=== PATIENT | female | born 1945 | race American Indian/Alaskan Native ===

== ENCOUNTER 2018-07-28 14:12 | Observation (INO) | payer OTHER, BC ==
[2018-07-28 14:20] VITALS: BMI 24.0
--- NOTE | 2018-07-28 14:22 | PDOC ---
Rapid Medical Evaluation Chief Complaint: Chest Pain Time Seen by Provider: 07/28/18 14:16 Medical Evaluation: Allergies Allergy/AdvReac Type Severity Reaction Status Date / Time No Known Allergies Allergy Verified 10/08/12 03:49 07/28/18 14:18 I have performed a brief in-person evaluation of this patient. The patient presents with a chief complaint of: pleuritic CP x 1 month. dry cough, Pertinent physical exam findings: AO x 3, NAD, lungs CTA I have ordered the following: CBC, CMP, EKG The patient will proceed to the ED for further evaluation 07/28/18 14:20 Discharge Disposition - Diagnosis Chest pain - Referrals - Patient Instructions - Post Discharge Activity
[2018-07-28 16:46] LABS: BASO % 1.2 % (0-2.0); EOS % 0.9 % (0-4.5); HEMATOCRIT 39.8 % (32.4-45.2); HEMOGLOBIN 13.6 GM/dL (10.7-15.3); LYMPH % 16.5 % (8-40); MCH 30.1 pg (25.7-33.7); MCHC 34.2 g/dl (32.0-36.0); MEAN CELL VOLUME 88.2 fl (80-96); MEAN PLT VOLUME 8.5 fl (7.5-11.1); MONO % 9.6 % (3.8-10.2); NEUT % 71.8 % (42.8-82.8); PLATELET COUNT 255 K/MM3 (134-434); RBC 4.51 M/mm3 (3.60-5.2); RDW 13.8 % (11.6-15.6); WHITE BLOOD COUNT 8.6 K/mm3 (4.0-10.0)
[2018-07-28 17:31] LABS: INR 0.97 (0.83-1.09); PROTHROMBIN TIME (PATIENT) 11.5 SEC (9.7-13.0)
--- NOTE | 2018-07-28 17:53 | PDOC ---
Attending Attestation - Resident Resident Name: Dimitris Calzada - ED Attending Attestation I have performed the following: I have examined & evaluated the patient, The case was reviewed & discussed with the resident, I agree w/resident's findings & plan, Exceptions are as noted - HPI HPI: 07/28/18 17:52 The patient is a 73 year old female with a significant past medical history of hypertension who presents to the emergency department with chest pain. The patient reports that her chest pain is worsened with exertion and deep inspiration. The patient reports some associated shortness of breath with her chest pain. 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 She denies any history of blood clots, leg swelling, recent travel. Is not on hormone therapy. No recent surgery or immobilization. She denies any fever chills, nausea, vomiting, diarrhea, constipation or urinary symptoms. The patient reports that she has had a prior GI workup regarding similar complaint with negative findings. It is noted that the patient is currently on macrobid for a UTI diagnosis. The patient denies any other complaints. - Physicial Exam PE: 07/28/18 17:53 GENERAL: Awake, alert, and fully oriented, in no acute distress. HEAD: No signs of trauma EYES: PERRLA, EOMI, sclera anicteric, conjunctiva clear ENT: Auricles normal inspection, hearing grossly normal, nares patent, oropharynx clear without exudates. Moist mucosa NECK: Nontender, no stepoffs, Normal ROM, supple, no lymphadenopathy, JVD, or masses LUNGS: Breath sounds equal, clear to auscultation bilaterally. No wheezes, and no crackles HEART: Regular rate and rhythm, normal S1 and S2, no murmurs, rubs or gallops ABDOMEN: Soft, nontender, normoactive bowel sounds. No guarding, no rebound. No masses EXTREMITIES: Normal range of motion, no edema. No clubbing or cyanosis. No cords, erythema, or tenderness NEUROLOGICAL: Cranial nerves II through XII intact. 5/5 strength and sensation in all extremities, Normal speech, normal gait, normal cerebellar function SKIN: Warm, Dry, normal turgor, no rashes or lesions noted. - Medical Decision Making 07/28/18 17:53 73 F with pleuritic chest pain. Pt with no DVT risk factors but given pleuritic nature will r/o PE with Ddimer. Pt has no ischemic EKG findings, making ACS less likely. - Labs, trop, ddimer - CXR - CTA if indicated
[2018-07-28 18:00] LABS: ALBUMIN 3.9 g/dl (3.4-5.0); ALK PHOS 88 U/L (45-117); ANION GAP 11 MMOL/L (8-16); BILIRUBIN,TOTAL 0.5 mg/dL (0.2-1); BLOOD UREA NITROGEN 12 mg/dL (7-18); CALCIUM 9.4 mg/dL (8.5-10.1); CHLORIDE 99 mmol/L (98-107); CO2 26 mmol/L (21-32); CREATININE 0.8 mg/dL (0.55-1.3); GLUCOSE,RANDOM 94 mg/dL (74-106); POTASSIUM 3.1 mmol/L (3.5-5.1); SGOT/AST 32 U/L (15-37); SGPT/ALT 21 U/L (13-61); SODIUM 136 mmol/L (136-145); TOT PROT 8.5 g/dl (6.4-8.2)
[2018-07-28] MEDS ORDERED: POTASSIUM CHLORIDE TABS 20 MEQ TABLET.ER (FP) PO ONE (23:32)
--- NOTE | 2018-07-28 23:37 | HP ---
CHIEF COMPLAINT: Chest pain, SOB PCP: Dr. Melendez HISTORY OF PRESENT ILLNESS: The patient is a 73 yo f w/ PMH HTN, OA, recurrent UTIs who comes into the ED c/ o a 3 week hx of chest pain and SOB. The patient describes a dull, substernal chest pain which radiates up to her throat. This pain began 3 weeks ago and was preceded by a sensation of "burning in the throat and mouth." She states that this pain is exacerbated by deep breathing and going up stairs. The patient took tylenol at home which helped the pain slightly. Patient follows with Dr. Quick for cardiology, last saw him approx. 1 year ago. The patient states that she had a stress test 5 years ago which was negative. Patient denies ever being cathed. Patient denies abdominal pain, nausea, vomiting, diarrhea. 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 Allergies No Known Allergies Allergy (Verified 10/08/12 03:49) HOME MEDICATIONS: Home Medications Medication Instructions Recorded Amlodipine Besylate [Norvasc] 10 mg PO DAILY 10/08/12 Losartan/Hydrochlorothiazide 1 each PO DAILY 10/08/12 [Losartan-Hctz 100-25 mg Tab] Meloxicam [Mobic] 15 mg PO TID 10/08/12 Bethanechol Chloride 50 mg PO Q6H 07/28/18 Metoprolol Succinate [Toprol Xl] 100 mg PO DAILY 07/28/18 Nitrofurantoin Macrocrystal 100 mg PO DAILY 07/28/18 [Nitrofurantoin] REVIEW OF SYSTEMS CONSTITUTIONAL: Absent: fever, chills, diaphoresis, generalized weakness, malaise, loss of appetite, weight change HEENT: Absent: rhinorrhea, nasal congestion, throat pain, throat swelling, difficulty swallowing, mouth swelling, ear pain, eye pain, visual changes CARDIOVASCULAR: Absent: syncope, palpitations, irregular heart rate, lightheadedness, peripheral edema RESPIRATORY: Absent: cough, shortness of breath, dyspnea with exertion, orthopnea, wheezing, stridor, hemoptysis GASTROINTESTINAL: Absent: abdominal pain, abdominal distension, nausea, vomiting, diarrhea, constipation, melena, hematochezia GENITOURINARY: Absent: dysuria, frequency, urgency, hesitancy, hematuria, flank pain, genital pain MUSCULOSKELETAL: Absent: myalgia, arthralgia, joint swelling, back pain, neck pain SKIN: Absent: rash, itching, pallor HEMATOLOGIC/IMMUNOLOGIC: Absent: easy bleeding, easy bruising, lymphadenopathy, frequent infections ENDOCRINE: Absent: unexplained weight gain, unexplained weight loss, heat intolerance, cold intolerance NEUROLOGIC: Absent: headache, focal weakness or paresthesias, dizziness, unsteady gait, seizure, mental status changes, bladder or bowel incontinence PSYCHIATRIC: Absent: anxiety, depression, suicidal or homicidal ideation, hallucinations. PHYSICAL EXAMINATION Vital Signs - 24 hr 07/28/18 14:17 Temperature 98.3 F Pulse Rate 71 Respiratory 18 Rate Blood Pressure 142/64 O2 Sat by Pulse 97 Oximetry (%) GENERAL: Awake, alert, and fully oriented, in no acute distress. HEAD: Normal with no signs of trauma. EYES: Pupils equal, round and reactive to light, extraocular movements intact, sclera anicteric, conjunctiva clear. No lid lag. NECK: Normal range of motion, supple without lymphadenopathy, JVD, or masses. LUNGS: Breath sounds equal, clear to auscultation bilaterally. No wheezes, and no crackles. No accessory muscle use. HEART: Regular rate and rhythm, normal S1 and S2 without murmur, rub or gallop. ABDOMEN: Soft, mild tenderness to palpation in epigastrium, not distended, normoactive bowel sounds, no guarding, no rebound, no masses. No hepatomegaly or splenomegaly. LOWER EXTREMITIES: 2+ pulses, warm, well-perfused. No calf tenderness. No peripheral edema. NEUROLOGICAL: Cranial nerves II-X intact. Normal speech. PSYCHIATRIC: Cooperative. Good eye contact. Appropriate mood and affect. SKIN: Warm, dry, normal turgor, no rashes or lesions noted, normal capillary refill. Laboratory Results - last 24 hr 07/28/18 07/28/18 07/28/18 15:01 16:00 16:00 WBC 8.6 RBC 4.51 Hgb 13.6 Hct 39.8 MCV 88.2 MCH 30.1 MCHC 34.2 RDW 13.8 Plt Count 255 D MPV 8.5 Absolute Neuts (auto) 6.2 Neutrophils % 71.8 Lymphocytes % 16.5 Monocytes % 9.6 D Eosinophils % 0.9 Basophils % 1.2 Nucleated RBC % 0 PT with INR 11.50 INR 0.97 D-Dimer 836 H Sodium Potassium Chloride Carbon Dioxide Anion Gap BUN Creatinine Creat Clearance w eGFR Random Glucose Calcium Total Bilirubin AST ALT Alkaline Phosphatase Creatine Kinase Troponin I Total Protein Albumin 07/28/18 16:00 WBC RBC Hgb Hct MCV MCH MCHC RDW Plt Count MPV Absolute Neuts (auto) Neutrophils % Lymphocytes % Monocytes % Eosinophils % Basophils % Nucleated RBC % PT with INR INR D-Dimer Sodium 136 Potassium 3.1 L Chloride 99 Carbon Dioxide 26 Anion Gap 11 BUN 12 Creatinine 0.8 Creat Clearance w eGFR > 60 Random Glucose 94 Calcium 9.4 Total Bilirubin 0.5 AST 32 ALT 21 Alkaline Phosphatase 88 Creatine Kinase 95 Troponin I < 0.02 Total Protein 8.5 H Albumin 3.9 ASSESSMENT/PLAN: The patient is a 73 yo f w/ PMH HTN who comes in c/o a 3 week history of atypical chest pain reproducible on palpation #Chest pain and SOB likley 2/2 GERD, r/o ACS -pain reproducible, preceded by burning -EKG unchanged from previous -trop negative x1 -rpt trop, EKG stat -protonix 40mg PO -tele monitoring #hypokalemia -40meq KCL PO -stat mag add on -monitor and replete PRN #HTN-controlled -resume home amlodipine 10mg daily -resume home HCTZ/losartan daily #FEN -no fluid indicated -monitor lytes as above -sodium controlled diet #Prophy -SCDs -patient projected to be short stay OBS -early ambulation #dispo -admit tele obs Visit type - Emergency Visit Emergency Visit: Yes Care time: The patient presented to the Emergency Department on the above date and was hospitalized for further evaluation of their emergent condition. - New Patient This patient is new to me today: Yes Date on this admission: 07/29/18 - Critical Care Critical Care patient: No
--- NOTE | 2018-07-28 23:45 | PDOC ---
*Physical Exam - Vital Signs Last Vital Signs Temp Pulse Resp BP Pulse Ox 98.3 F 71 18 142/64 97 07/28/18 14:17 07/28/18 14:17 07/28/18 14:17 07/28/18 14:17 07/28/18 14:17 ED Treatment Course - LABORATORY CBC & Chemistry Diagram: 07/28/18 16:00 07/28/18 16:00 - ADDITIONAL ORDERS Additional order review: Laboratory Results 07/28/18 07/28/18 07/28/18 16:00 16:00 15:01 PT with INR 11.50 INR 0.97 D-Dimer 836 H Sodium 136 Potassium 3.1 L Chloride 99 Carbon Dioxide 26 Anion Gap 11 BUN 12 Creatinine 0.8 Creat Clearance w eGFR > 60 Random Glucose 94 Calcium 9.4 Total Bilirubin 0.5 AST 32 ALT 21 Alkaline Phosphatase 88 Creatine Kinase 95 Troponin I < 0.02 Total Protein 8.5 H Albumin 3.9 07/28/18 16:00 RBC 4.51 MCV 88.2 MCHC 34.2 RDW 13.8 MPV 8.5 Neutrophils % 71.8 Lymphocytes % 16.5 Monocytes % 9.6 D Eosinophils % 0.9 Basophils % 1.2 Medical Decision Making - Medical Decision Making 07/28/18 23:44 ct chest neg for PE pt admitted to inpatient team for workup of her cp we went on down time process approx 6pm - please see paper records for fulldocumentation from resident/nursing *DC/Admit/Observation/Transfer Diagnosis at time of Disposition: Chest pain Qualifiers: Chest pain type: unspecified Qualified Code(s): R07.9 - Chest pain, unspecified - Discharge Dispostion Condition at time of disposition: Stable Decision to Admit order: Yes - Referrals Referrals: Dax Melendez MD [Primary Care Provider] - - Patient Instructions - Post Discharge Activity
[2018-07-29] MEDS: PANTOPRAZOLE 40 MG TABLET (FP) PO SCH ×2 (00:05→09:54)
--- NOTE | 2018-07-29 01:59 | PDOC ---
*Physical Exam - Vital Signs Last Vital Signs Temp Pulse Resp BP Pulse Ox 98.3 F 71 18 142/64 97 07/28/18 14:17 07/28/18 14:17 07/28/18 14:17 07/28/18 14:17 07/28/18 14:17 ED Treatment Course - LABORATORY CBC & Chemistry Diagram: 07/28/18 16:00 07/28/18 16:00 - ADDITIONAL ORDERS Additional order review: Laboratory Results 07/28/18 07/28/18 07/28/18 16:00 16:00 15:01 PT with INR 11.50 INR 0.97 D-Dimer 836 H Sodium 136 Potassium 3.1 L Chloride 99 Carbon Dioxide 26 Anion Gap 11 BUN 12 Creatinine 0.8 Creat Clearance w eGFR > 60 Random Glucose 94 Calcium 9.4 Total Bilirubin 0.5 AST 32 ALT 21 Alkaline Phosphatase 88 Creatine Kinase 95 Troponin I < 0.02 Total Protein 8.5 H Albumin 3.9 07/28/18 16:00 RBC 4.51 MCV 88.2 MCHC 34.2 RDW 13.8 MPV 8.5 Neutrophils % 71.8 Lymphocytes % 16.5 Monocytes % 9.6 D Eosinophils % 0.9 Basophils % 1.2 Medical Decision Making - Medical Decision Making Late entry due to [employer] down time Per [employer], CTA negative for PE Discussed case with Dr. Rand who accepted patient for admission under Dr. Goode 07/29/18 01:59 *DC/Admit/Observation/Transfer Diagnosis at time of Disposition: Chest pain Qualifiers: Chest pain type: unspecified Qualified Code(s): R07.9 - Chest pain, unspecified - Discharge Dispostion Condition at time of disposition: Stable - Referrals Referrals: Dax Melendez MD [Primary Care Provider] - - Patient Instructions - Post Discharge Activity
[2018-07-29] MEDS ORDERED: POTASSIUM CHLORIDE TABS 20 MEQ TABLET.ER (FP) PO ONE (03:35)
[2018-07-29] MEDS ORDERED: PANTOPRAZOLE 40 MG TABLET (FP) ONE ×2 (03:36→09:39)
--- NOTE | 2018-07-29 05:16 | PN ---
Teaching Attending Note Name of Resident: Curtis Rand ATTENDING PHYSICIAN STATEMENT I saw and evaluated the patient. I reviewed the resident's note and discussed the case with the resident. I agree with the resident's findings and plan as documented. SUBJECTIVE: Seen and examined; please refer to resident note for further historical documentation. Patient is a 73 y/o female patient of Dr. Quick for cardiology who presents to the ER with a CC of chest pain. Pain is atypical in nature; nothing makes it better or worse, hasn't seen any other MD for this prior to today. Afebrile and hemodynamically stable with negative troponin x2. Had stress test stated 4 years ago, states has had an echo in the past but not sure when. Chest pain free when I saw her. Tells me that her sx similar to GERD. Was reproducible lower sternal area. Denies prior trial PPI, etc. D dimer was elevated so CTA done and was negative for PE. 10 sys ROS done negative aside from HPI PMH, PSH, Family hx, Social hx reviewed Medication list reviewed; pending reconciliation OBJECTIVE: VS, labs, imaging reviewed NAD, AAO, resting comfortably in bed NC AT EOMI PERRLA RRR s1/2 no mgr Lungs CTAB, w/ sym exp NT ND +BS CN2-12 wnl, no fnd Normal mood, appropriate affect EKG reviewed; nonspecific ST-T changes CXR reviewed ASSESSMENT AND PLAN: Patient presents for atypical CP patient of Dr. Quick; placing on telemetry 1) Chest Pain in Adult -Admit to medicine; monitor on telemetry and consult her proration clerk. Defer further treatment and monitoring to them. Troponin negative so far. Trial of PPI initiated. Trend troponin. Obtain old records. Check A1c, lipids, TSH. Negative CTA noted. Can feed overnight as not anticipating urgent stress test. 2) HTN -140s in the ER; continue home meds (HCTZ/ARB combo) 3) Recurrent UTIs -No current sx 4) Hypokalemia -Repleted; recheck in AM Full Code
[2018-07-29 06:13] LABS: HEMATOCRIT 36.2 % (32.4-45.2); HEMOGLOBIN 12.3 GM/dL (10.7-15.3); MCH 29.9 pg (25.7-33.7); MCHC 34.1 g/dl (32.0-36.0); MEAN CELL VOLUME 87.8 fl (80-96); MEAN PLT VOLUME 9.3 fl (7.5-11.1); PLATELET COUNT 221 K/MM3 (134-434); RBC 4.13 M/mm3 (3.60-5.2); RDW 13.8 % (11.6-15.6)
[2018-07-29 06:27] LABS: PROTHROMBIN TIME (PATIENT) 11.8 SEC (9.7-13.0)
[2018-07-29 06:29] LABS: ACTIVATED PTT 27.8 SECONDS (25.2-36.5)
[2018-07-29 06:48] LABS: ANION GAP 7 MMOL/L (8-16); BLOOD UREA NITROGEN 11 mg/dL (7-18); CHLORIDE 98 mmol/L (98-107); CO2 30 mmol/L (21-32); CREATININE 0.8 mg/dL (0.55-1.3); GLUCOSE,RANDOM 95 mg/dL (74-106); PHOSPHOROUS 4.2 mg/dL (2.5-4.9); POTASSIUM 3.2 mmol/L (3.5-5.1); SODIUM 135 mmol/L (136-145)
--- NOTE | 2018-07-29 08:53 | DS ---
Physical Exam: SUBJECTIVE: Patient seen and examined. no recurrent episodes of CP. CP was substernal, worse on inspiration, not radiating and relieved with PPI. been having this CP for over a month. was on trial of H2 kaleb [id number] by PMD with no improvement and then was started on reglan and still not improving so came to the ER. had normal stress test 4 years ago which was done "routinely". denies CP at this time, sob, fever, chills, N/V/C/D, numbness/tingling in arms. denies smoking no significant cardiac disease in family OBJECTIVE: Vital Signs Period Temp Pulse Resp BP Sys/Clark Pulse Ox Last 24 Hr 98.3 F 54-71 18-18 116-142/64-66 97-99 PHYSICAL EXAM GENERAL: The patient is awake, alert, and fully oriented, in no acute distress. HEAD: Normal with no signs of trauma. EYES: PERRL, extraocular movements intact, sclera anicteric, conjunctiva clear. ENT: Ears normal, nares patent, oropharynx clear without exudates, moist mucous membranes. NECK: Trachea midline, full range of motion, supple. LUNGS: Breath sounds equal, clear to auscultation bilaterally, no wheezes, no crackles, no accessory muscle use. HEART: Regular rate and rhythm, S1, S2 without murmur, rub or gallop. ABDOMEN: Soft, nontender, nondistended, normoactive bowel sounds, no guarding, no rebound, no hepatosplenomegaly, no masses. EXTREMITIES: 2+ pulses, warm, well-perfused, no edema. NEUROLOGICAL: Cranial nerves II through XII grossly intact. Normal speech, gait not observed. PSYCH: Normal mood, normal affect. SKIN: Warm, dry, normal turgor, no rashes or lesions noted. LABS Laboratory Results - last 24 hr 07/28/18 07/28/18 07/28/18 15:01 16:00 16:00 WBC 8.6 RBC 4.51 Hgb 13.6 Hct 39.8 MCV 88.2 MCH 30.1 MCHC 34.2 RDW 13.8 Plt Count 255 D MPV 8.5 Absolute Neuts (auto) 6.2 Neutrophils % 71.8 Lymphocytes % 16.5 Monocytes % 9.6 D Eosinophils % 0.9 Basophils % 1.2 Nucleated RBC % 0 PT with INR 11.50 INR 0.97 PTT (Actin FS) D-Dimer 836 H Sodium Potassium Chloride Carbon Dioxide Anion Gap BUN Creatinine Creat Clearance w eGFR Random Glucose Calcium Phosphorus Magnesium Total Bilirubin AST ALT Alkaline Phosphatase Creatine Kinase Troponin I Total Protein Albumin 07/28/18 07/29/18 07/29/18 16:00 04:19 04:19 WBC RBC Hgb Hct MCV MCH MCHC RDW Plt Count MPV Absolute Neuts (auto) Neutrophils % Lymphocytes % Monocytes % Eosinophils % Basophils % Nucleated RBC % PT with INR INR PTT (Actin FS) D-Dimer Sodium 136 Potassium 3.1 L Chloride 99 Carbon Dioxide 26 Anion Gap 11 BUN 12 Creatinine 0.8 Creat Clearance w eGFR > 60 Random Glucose 94 Calcium 9.4 Phosphorus Magnesium 1.9 Total Bilirubin 0.5 AST 32 ALT 21 Alkaline Phosphatase 88 Creatine Kinase 95 Troponin I < 0.02 0.02 Total Protein 8.5 H Albumin 3.9 07/29/18 07/29/18 07/29/18 04:32 05:15 05:15 WBC 6.0 RBC 4.13 Hgb 12.3 Hct 36.2 MCV 87.8 MCH 29.9 MCHC 34.1 RDW 13.8 Plt Count 221 MPV 9.3 Absolute Neuts (auto) Neutrophils % Lymphocytes % Monocytes % Eosinophils % Basophils % Nucleated RBC % PT with INR 11.80 INR 1.00 PTT (Actin FS) 27.8 D-Dimer Sodium 135 L Potassium 3.2 L Chloride 98 Carbon Dioxide 30 Anion Gap 7 L BUN 11 Creatinine 0.8 Creat Clearance w eGFR > 60 Random Glucose 95 Calcium 9.0 Phosphorus 4.2 Magnesium 2.0 Total Bilirubin AST ALT Alkaline Phosphatase Creatine Kinase Troponin I Total Protein Albumin HOSPITAL COURSE: Date of Admission:07/28/18 Date of Discharge: 07/29/18 Admitting diagnosis R/o ACS Pre hospital course 73 yo f w/ PMH HTN, OA, recurrent UTIs who comes into the ED c/o a 3 week hx of chest pain and SOB. The patient describes a dull, substernal chest pain which radiates up to her throat. This pain began 3 weeks ago and was preceded by a sensation of "burning in the throat and mouth." She states that this pain is exacerbated by deep breathing and going up stairs. The patient took tylenol at home which helped the pain slightly. Patient follows with Dr. Quick for cardiology, last saw him approx. 1 year ago. The patient states that she had a stress test 5 years ago which was negative. Patient denies ever being cathed. Patient denies abdominal pain, nausea, vomiting, diarrhea. Subsequent hospital course tele observation. no ekg changes. CE neg x2. ddimer was elevated and CTA was done which was negative for PE. symptoms resolved with protonix. option was given to wait till tuesday for stress test. pt preferred to f/u with cardio for stress test. since patient has low risk factors and symptoms appear to be more GERd related can d/c home with f/u with cardio for stress as outpatient. d/c home with PPI trial for 2 weeks Minutes to complete discharge: 40 Discharge Summary Reason For Visit: CHEST PAIN Current Active Problems Chest pain (Acute) HTN (hypertension) (Chronic) Condition: Stable - Instructions Diet, Activity, Other Instructions: You were observed overnight in the hospital due to your chest pain, this likely is from acid reflux. You are being started on an acid lowering medication. Take this once a day for 2 weeks to see if your symptoms improve Continue a low salt diet, Minimize caffeine and spicy food as this can aggregate your symptoms. Call your cone picker on Tuesday and schedule an appointment as they may want to complete further testing. Follow up with your primary care doctor in 1 week If your symptoms return or you develop difficulty breathing or fever (temp >101 ) return to the ER. Referrals: Dax Melendez MD [Primary Care Provider] - Tushar Quick MD [Non Staff, Medical] - Disposition: HOME - Home Medications Comprehensive Discharge Medication List: Ambulatory Orders Amlodipine Besylate [Norvasc] 10 mg PO DAILY 10/08/12 Losartan/Hydrochlorothiazide [Losartan-Hctz 100-25 mg Tab] 1 each PO DAILY 10/08 Meloxicam [Mobic] 15 mg PO TID 10/08/12 Bethanechol Chloride 50 mg PO Q6H 07/28/18 Metoprolol Succinate [Toprol Xl] 100 mg PO DAILY 07/28/18 Nitrofurantoin Macrocrystal [Nitrofurantoin] 100 mg PO DAILY 07/28/18 This patient is new to me today: Yes Date on this admission: 07/29/18 Emergency Visit: Yes ED Registration Date: 07/28/18 Care time: The patient presented to the Emergency Department on the above date and was hospitalized for further evaluation of their emergent condition. Critical Care patient: No - Discharge Referral Referred to [facility] No
[2018-07-29] MEDS ORDERED: POTASSIUM CHLORIDE ORAL LIQUID 20 MEQ/15 ML PO ONE (09:00)
[2018-07-29] MEDS ORDERED: PT OWN MED DRAWER 7, Y5N ONE (09:26)
[2018-07-29] MEDS ORDERED: amLODIPine BESYLATE 5 MG TABLET (FP) ONE (09:40)
--- NOTE | 2018-07-29 09:52 | EKG ---
Test Reason : Blood Pressure : / mmHG Vent. Rate : 064 BPM Atrial Rate : 064 BPM P-R Int : 128 ms QRS Dur : 094 ms QT Int : 426 ms P-R-T Axes : 048 -22 255 degrees QTc Int : 439 ms POOR DATA QUALITY, INTERPRETATION MAY BE ADVERSELY AFFECTED NORMAL SINUS RHYTHM ABNORMAL ECG WHEN COMPARED WITH ECG OF 08-OCT-2012 03:44, NO SIGNIFICANT CHANGE WAS FOUND Confirmed by GAIL MOREIRA, JESSICA ([id number]) on 07/29/2018 9:52:21 AM Referred By: Confirmed By:JESSICA REYNOLDS MD
[2018-07-29] MEDS ORDERED: LOSARTAN 50MG/HCTZ 12.5MG 1 TAB (FP) PO SCH (10:00)
[2018-07-29] MEDS ORDERED: amLODIPine BESYLATE 10 MG TABLET (FP) PO SCH (10:00)
[2018-07-29 12:02] VITALS: BP 124/74; PULSE 58; TEMP 98.1
== END 2018-07-29 11:09 | disposition home or self-care (01) ==
LOC: JER 14:12 → JERBED 23:45
PROVIDERS: ADMIT Internal Medicine; ATTEND Internal Medicine
DX: R07.89 Other chest pain (principal); R06.02 Shortness of breath; E87.6 Hypokalemia; I10 Essential (primary) hypertension; M19.90 Unspecified osteoarthritis, unspecified site; Z87.440 Personal history of urinary (tract) infections
CPT/HCPCS: 36415; 71046-TC-FY; 71275-TC; 80048; 80053; 82550; 83735; 84100; 84484; 85025; 85027; 85379; 85610; 85730; 93005; 93010; 99285-25; G0378; Q9967

== ENCOUNTER 2018-11-04 06:03 | Emergency (ER) | payer OTHER, BC ==
[2018-11-04 06:23] VITALS: BMI 51.0
--- NOTE | 2018-11-04 07:21 | PDOC ---
History of Present Illness - General Chief Complaint: Urinary Problem Stated Complaint: URINARY PROBLEM Time Seen by Provider: 11/04/18 07:06 - History of Present Illness Initial Comments: Shilpa Weldon is a 73yo woman with recurrent UTI on macrobid suppression and ILD (states allergic pneumonitis) who presents with one week of dysuria. She states that she has been taking her antibiotics as prescribed, but she does occasionally have symptomatic UTI despite treatment. During periods of symptomatic infection, she has been given different antibiotics; she reports good response to Suprax in the past. Ms Weldon denies any fevers, flank pain, abdominal pain, nausea, vomiting, or any cough, SOB/dyspnea, or other recent symptoms. Past History - Past Medical History Allergies/Adverse Reactions: Allergies Allergy/AdvReac Type Severity Reaction Status Date / Time No Known Allergies Allergy Verified 10/08/12 03:49 Home Medications: Ambulatory Orders Amlodipine Besylate [Norvasc -] 10 mg PO DAILY 10/08/12 Losartan/Hydrochlorothiazide [Losartan-Hctz 100-25 mg Tab] 1 each PO DAILY 10/08 Meloxicam [Mobic] 15 mg PO DAILY 10/08/12 Bethanechol Chloride 50 mg PO Q6H 07/28/18 Metoprolol Succinate [Toprol Xl] 100 mg PO DAILY 07/28/18 Pantoprazole Sodium [Protonix -] 40 mg PO DAILY #14 tablet.ec 07/29/18 COPD: No HTN: Yes Hypercholesterolemia: Yes - Immunization History Td Vaccination: Yes TDAP Vaccination: Yes Immunization Up to Date: Yes - Suicide/Smoking/Psychosocial Hx Smoking Status: No Smoking History: Never smoked Have you smoked in the past 12 months: No Number of Cigarettes Smoked Daily: 0 Information on smoking cessation initiated: No Hx Alcohol Use: No Drug/Substance Use Hx: No Review of Systems - Review of Systems Comments:: General: No fevers, no chills, no weight or appetite change, no malaise HEENT: No changes in vision, no changes in hearing, no congestion, no sore throat CV: No chest pain, no palpitations, no LE edema Pulm: No SOB, no cough, no wheezing GI: No nausea or vomiting, no change in bowel habits, no melena : +recurrent UTI, +dysuria, no flank pain Musc: No back pain, no joint swelling, no recent injury Skin: No rash, no lesions, no erythema Endo: No excessive thirst, no heat/cold intolerance Heme: No unusual bruising or bleeding, no swollen glands Neuro: No syncope, no numbness/tingling, no focal weakness Vasc: No claudication Psych: No recent change in mood, no SI or HI *Physical Exam - Vital Signs Last Vital Signs Temp Pulse Resp BP Pulse Ox 98.8 F 59 L 20 136/65 90 L 11/04/18 06:21 11/04/18 06:21 11/04/18 06:21 11/04/18 06:21 11/04/18 06:21 - Physical Exam Comments: General: Comfortable, no acute distress HEENT: Atraumatic, PERRL, EOMI, MMM, voice normal Cards: RRR, no murmur appreciated Pulm: Comfortable on room air, clear to auscultation bilaterally, no wheezing or crackles Abd: Soft, nontender, nondistended : No CVA tenderness Ext: Atraumatic. No LE edema. ROM intact Vasc: Extremities WWP Skin: Normal color, no rashes or lesions Neuro: A&Ox3, CN grossly intact, normal speech, motor/sensory grossly intact and symmetric Psych: Mood appropriate to situation Medical Decision Making - Medical Decision Making 11/04/18 07:21 Shilpa Weldon is a 73yo woman with recurrent UTI on macrobid suppression and ILD (states allergic pneumonitis) who presents with one week of dysuria. She has had similar symptomatic episodes in the past despite the abx treatment. She denies any s/s of complicated UTI, pyelonephritis or systemic infection including fever, nausea/vomiting, flank pain, or abdominal pain. - Most likely UTI, may have macrobid resistance due to halfway therapy. Unlikely pyelonephritis or stone given lack of abdominal pain, flank pain, CVA tenderness, fever - Most recent urine culture was cabrera-sensitive but from 2012 - UA and UCx 11/04/18 07:37 - O2 sats noted to be low on arrival. Rechecked at bedside, now 93% on RA. Pt reports that she has not taken her regular morning meds (Breo and Ventolin) - Duoneb ordered, will recheck sats 11/04/18 08:25 - Duoneb completed, sats rechecked. Improved to 95-96% on RA - UA still pending 11/04/18 09:00 - UA resulted. Negative - Will re-examine and discuss w/ Dr Candelaria. Unclear at this time what is causing Ms Weldon's dysuria 11/04/18 09:08 - Will not treat UTI as UA is negative, but culture sent. Will schedule call- back for culture results - Instructed to follow up with PMD for continued symptoms. Discussed with Dr Candelaria. Yessy Dee PGY1 *DC/Admit/Observation/Transfer Diagnosis at time of Disposition: Dysuria - Discharge Dispostion Disposition: HOME Condition at time of disposition: Stable Decision to Admit order: No - Referrals Schedule a call back: Urine culture Referrals: Jamie Melendez MD [Primary Care Provider] - - Patient Instructions Printed Discharge Instructions: DI for Dysuria -- Adult Additional Instructions: Discharge Instructions: You were seen in the ED for painful urination called dysuria. Your urine test was negative for infection, but a culture was sent. You will be called with the results of the culture. Please continue to take all of your regular medications as prescribed. Follow up with your regular doctor within the next 2-3 days for any continued symptoms. Seek immediate care for worsening symptoms, blood in your urine, fever to 101F, back or side pain, or any other concerning symptoms. If you are having an emergency, go to the nearest emergency room. - Post Discharge Activity
[2018-11-04] MEDS ORDERED: ALBUTEROL SO4 2.5/IPRATROPIUM 0.5 INH SOL 3 ML VIAL.NEB. NEB ONE ×3 (07:24→07:50)
[2018-11-04 08:50] LABS: URINE APPEARANCE CLEAR; URINE BILIRUBIN NEGATIVE (NEGATIVE); URINE COLOR DK YELLOW; URINE GLUCOSE (UA) NEGATIVE (NEGATIVE); URINE KETONE NEGATIVE (NEGATIVE); URINE LEUK ESTERASE NEGATIVE (NEGATIVE); URINE NITRITE NEGATIVE (NEGATIVE); URINE PROTEIN NEGATIVE (NEGATIVE); URINE UROBILINOGEN 0.2 mg/dL (0.2-1.0)
--- NOTE | 2018-11-04 09:17 | PDOC ---
Attending Attestation - Resident Resident Name: LuizYessy - ED Attending Attestation I have performed the following: I have examined & evaluated the patient, The case was reviewed & discussed with the resident, I agree w/resident's findings & plan, Exceptions are as noted - HPI HPI: 11/04/18 09:09 73 F with h/o chronic UTI on macrobid suppression and ILD, presenting to ED with dysuria. Pt states that for about 2 weeks she has had burning with urination. Denies urgency or frequency. Denies F/C. Denies abdominal or flank pain. Pt states that it feels similar to prior UTIs. Pt noted to be hypoxic to 90% in ED. Pt reports her baseline sat is 92-93% due to her ILD. Denies any CP/SOB/cough/fever. States that she uses ventolin 4 times a day, has not used it today. - Physicial Exam PE: 11/04/18 09:17 "GENERAL: Awake, alert, and fully oriented, in no acute distress. HEAD: No signs of trauma EYES: PERRLA, EOMI, sclera anicteric, conjunctiva clear ENT: Auricles normal inspection, hearing grossly normal, nares patent, oropharynx clear without exudates. Moist mucosa NECK: Nontender, no stepoffs, Normal ROM, supple, no lymphadenopathy, JVD, or masses LUNGS: Breath sounds equal, clear to auscultation bilaterally. No wheezes, and no crackles HEART: Regular rate and rhythm, normal S1 and S2, no murmurs, rubs or gallops ABDOMEN: Soft, nontender, normoactive bowel sounds. No guarding, no rebound. No masses EXTREMITIES: Normal range of motion, no edema. No clubbing or cyanosis. No cords, erythema, or tenderness NEUROLOGICAL: Cranial nerves II through XII intact. 5/5 strength and sensation in all extremities, Normal speech, normal gait, normal cerebellar function SKIN: Warm, Dry, normal turgor, no rashes or lesions noted. - Medical Decision Making 11/04/18 09:17 73 F with dysuria x 2 weeks. No other infectious symptoms. Will check for UTI. Pt also noted to be hypoxic but is likely 2/2 chronic lung disease. Will give scheduled nebulizer. - UA - Neb UA negative for UTI Pt to f/u with Dr. Haines Pt's O2 sat now 96% on RA after single nebulizer treatment. Pt continues to have no symptoms. Pt is well appearing, with normal vitals. Clinically stable for DC at this time. I discussed the physical exam findings, ancillary test results and final diagnoses with the patient. I answered all of the patient's questions. The patient was satisfied with the care received and felt comfortable with the discharge plan and treatment plan. The patient agrees to follow up with the primary care physician within 24-72 hours.
[2018-11-04 09:43] VITALS: BP 128/65; PULSE 62; TEMP 98.5
--- NOTE | 2018-11-06 15:16 | EKG ---
Test Reason : Blood Pressure : / mmHG Vent. Rate : 058 BPM Atrial Rate : 058 BPM P-R Int : 158 ms QRS Dur : 090 ms QT Int : 408 ms P-R-T Axes : 047 -21 245 degrees QTc Int : 400 ms SINUS BRADYCARDIA LOW VOLTAGE QRS ABNORMAL ECG WHEN COMPARED WITH ECG OF 28-JUL-2018 14:25, NO SIGNIFICANT CHANGE WAS FOUND Confirmed by RICHA ALFREDO MD ([id number]) on 11/06/2018 3:16:05 PM Referred By: Confirmed By:RICHA ALFREDO MD
== END 2018-11-04 09:41 | disposition home or self-care (01) ==
LOC: JER 06:03
PROC: 3E0F7GC Introduction of Other Therapeutic Substance into Respiratory Tract, Via Natural or Artificial Opening (ICD-10-PCS; principal; 2018-11-04)
DX: R30.0 Dysuria (principal); J84.9 Interstitial pulmonary disease, unspecified; I10 Essential (primary) hypertension; E78.00 Pure hypercholesterolemia, unspecified; Z87.440 Personal history of urinary (tract) infections
CPT/HCPCS: 81003; 87086; 93005; 93010; 94640; 99282-25